=== PATIENT | female | born 1995 | race Caucasian/White ===

== ENCOUNTER 2023-09-20 01:28 | Emergency (ER) | payer BC ==
[~2023-09-20] VITALS: Ht 172.7 cm; Wt 170.0 kg
[2023-09-20 01:44] VITALS: BP 142/88; PULSE 98; RESP 16; TEMP 98.6; O2SAT 100
== END 2023-09-20 07:04 | disposition left against medical advice (07) ==
LOC: ER 01:28
DX: R44.1 Visual hallucinations (principal); Z53.21 Procedure and treatment not carried out due to patient leaving prior to being seen by health care provider